=== PATIENT | female | born 1970 | race Caucasian/White ===

== ENCOUNTER → 2023-05-16 | Day surgery (SDC) | payer MEDICARE ==
[~2023-05-16] MED LIST: ACETAMINOPHEN 1000 MG/100 ML 100 ML IV ONE; ATIVAN1 MG PO; CLONIDINE HCL0.3 MG PO; DEXAMETHASONE SOD PHOS INJ 4 MG/ML SDV ONE; DICYCLOMINE HCL10 MG PO; DULCOLAX10 MG PR; FENTANYL CITRATE/PF 100MCG/2 ML INJ ONE; IOPAMIDOL 610MG/1ML 300 MG/ML VIAL IV ONE; LIDOCAINE HCL 2% LOCAL INJ 5 ML SDV VIAL INJ ONE; MIDAZOLAM HCL 2 MG/2 ML VIAL ONE; NEURONTIN300 MG PO; ONDANSETRON HCL INJ 2MG/ML 2ML 2 MG/ML VIAL ONE; ONDANSETRON ODT8 MG PO; PHENTERMINE H37.5 MG PO; PROPOFOL IV EMULSION 10 MG/ML 20 ML VIAL ONE; SENOKOT-S TABL1 EACH PO; SEVOFLURANE INHAL SOLN 250 ML PEN BTL ONE
[2023-05-16 06:21] LABS: BASOPHILS # (AUTO) 0.1 (0.0-0.1); BASOPHILS % 0.7 % (0.0-1.0); EOSINOPHILS # (AUTO) 0.3 (0.0-0.4); HEMATOCRIT 36.1 % (34.2-44.1); HEMOGLOBIN 10.9 g/dL (12.0-16.0); LYMPHOCYTES # (AUTO) 2.5 (1.0-3.2); LYMPHOCYTES % 28.8 % (18.0-39.1); MEAN CORPUSCULAR HEMOGLOBIN 24.7 pg (28-32); MEAN CORPUSCULAR HGB CONC 30.2 g/dL (31-35); MEAN CORPUSCULAR VOLUME 81.9 fL (81-99); MONOCYTES # (AUTO) 0.5 (0.2-0.8); MONOCYTES % 5.7 % (4.4-11.3); NEUTROPHILS # (AUTO) 5.3 (2.1-6.9); NEUTROPHILS % 61.3 % (38.7-80.0); PLATELET COUNT 271 x10e3/uL (140-360); RED BLOOD COUNT 4.41 x10e6/uL (3.6-5.1); RED CELL DISTRIBUTION WIDTH 15.5 % (11.7-14.4); WHITE BLOOD COUNT 8.62 x10e3/uL (4.8-10.8)
[2023-05-16] MEDS: CEFTRIAXONE 1 GM VIAL ONE (06:36)
[2023-05-16] MEDS: LACTATED RINGER'S 1,000 ML ONE (06:36)
[2023-05-16 06:51] LABS: ANION GAP 13.5 mmol/L (8-16); CALCIUM 9.8 mg/dL (8.4-10.2); CREATININE, SERUM 0.88 mg/dL (0.57-1.11); POTASSIUM 3.5 mmol/L (3.5-5.1)
[2023-05-16] MEDS: ONDANSETRON HCL INJ 2MG/ML 2ML 2 MG/ML VIAL ONE (08:30)
[2023-05-16] MEDS: FENTANYL CITRATE/PF 100MCG/2 ML INJ ONE (08:30)
[2023-05-16] MEDS: ACETAMINOPHEN/CODEINE 300MG - 30MG TAB ONE (08:35)
[2023-05-16 09:05] VITALS: BP 130/90; PULSE 82; RESP 16; O2SAT 97
== END | disposition home or self-care (01) ==
LOC: OR 05:33
PROVIDERS: ATTEND Urology
DX: N20.0 Calculus of kidney (principal); Z46.6 Encounter for fitting and adjustment of urinary device; N81.10 Cystocele, unspecified; N81.6 Rectocele; N95.2 Postmenopausal atrophic vaginitis; N28.89 Other specified disorders of kidney and ureter; F41.9 Anxiety disorder, unspecified; F32.A Depression, unspecified; Z79.899 Other long term (current) drug therapy
CPT/HCPCS: 36415; 52352; 74018; 74420; 80048; 85025; 87086; C1769; J0131; J0696; J1100; J2001; J2250; J2405; J2704; J3010; J7121; Q9967

== ENCOUNTER → 2024-08-15 | Outpatient (REF) | payer MEDICARE ==
[~2024-08-15] MED LIST changes: -ACETAMINOPHEN 1000 MG/100 ML 100 ML IV ONE; -DEXAMETHASONE SOD PHOS INJ 4 MG/ML SDV ONE; -FENTANYL CITRATE/PF 100MCG/2 ML INJ ONE; +IOPAMIDOL 370 MG/ML 100 ML INFUS..BTL INJ ONE; -IOPAMIDOL 610MG/1ML 300 MG/ML VIAL IV ONE; -LIDOCAINE HCL 2% LOCAL INJ 5 ML SDV VIAL INJ ONE; -MIDAZOLAM HCL 2 MG/2 ML VIAL ONE; -ONDANSETRON HCL INJ 2MG/ML 2ML 2 MG/ML VIAL ONE; -PROPOFOL IV EMULSION 10 MG/ML 20 ML VIAL ONE; -SEVOFLURANE INHAL SOLN 250 ML PEN BTL ONE
== END ==
LOC: CT 14:11
PROVIDERS: ATTEND Internal Medicine
DX: R19.5 Other fecal abnormalities (principal); R10.815 Periumbilic abdominal tenderness; K59.09 Other constipation
CPT/HCPCS: 74177; Q9967

== ENCOUNTER 2024-09-09 20:20 | Inpatient (IN) | payer MEDICARE ==
[~2024-09-09] VITALS: Ht 160 cm; Wt 59.0 kg
[~2024-09-09 20:20] MED LIST changes: -IOPAMIDOL 370 MG/ML 100 ML INFUS..BTL INJ ONE
[2024-09-09 20:45] VITALS: TEMP 97.9
[2024-09-09 21:17] LABS: BASOPHILS % 0.5 % (0.0-1.0); EOSINOPHILS % 1.9 % (0.0-6.0); LYMPHOCYTES % 21.9 % (18.0-39.1); MONOCYTES % 6.5 % (4.4-11.3); NEUTROPHILS % 68.8 % (38.7-80.0); RED CELL DISTRIBUTION WIDTH 15.4 % (11.7-14.4)
[2024-09-09 21:52] LABS: EST GLOMERULAR FILTRATION RATE 80.0 ML/MIN (>=60)
[2024-09-09] MEDS ORDERED: Morphine 4mg INJECTION 4 MG/ML INJ IV PRN (22:00)
[2024-09-09] MEDS: ONDANSETRON HCL INJ 2MG/ML 2ML 2 MG/ML VIAL IV STA (22:16)
[2024-09-09] MEDS: KETOROLAC TROMETHAMINE 30 MG/ML VIAL IV STA (22:17)
[2024-09-09] MEDS: SODIUM CHLORIDE 0.9% 1000ML 1,000 ML IV STA (22:19)
[2024-09-09 22:21] VITALS: PULSE 88; RESP 17
[2024-09-09 23:30] LABS: LEUKOCYTE ESTERASE ,URINE SMALL (NEGATIVE); PROTEIN,URINE DIPSTICK NEGATIVE (NEGATIVE); URINE UROBILINOGEN 0.2 mg/dL (0.2 - 1)
[2024-09-09 23:31] LABS: EPITHELIAL CELLS,URINE MODERATE /LPF
[2024-09-10] MEDS: HYDROMORPHONE 1MG/1ML INJ IV PRN (00:37)
[2024-09-10 08:21] LABS: BASOPHILS % 0.7 % (0.0-1.0); EOSINOPHILS % 3.3 % (0.0-6.0); LYMPHOCYTES % 32.0 % (18.0-39.1); MONOCYTES % 6.5 % (4.4-11.3); NEUTROPHILS % 57.1 % (38.7-80.0); RED CELL DISTRIBUTION WIDTH 15.5 % (11.7-14.4)
[2024-09-10 08:43] VITALS: BP 128/84; PULSE 66; RESP 19; TEMP 98.1; O2SAT 98
[2024-09-10 09:19] LABS: EST GLOMERULAR FILTRATION RATE 82.0 ML/MIN (>=60)
[2024-09-10 09:30] VITALS: BP 128/84; PULSE 66; RESP 19; TEMP 98.1; O2SAT 98
[2024-09-10 11:38] VITALS: BP 149/86; PULSE 62; RESP 17; TEMP 97.3; O2SAT 95
[2024-09-10] MEDS: ONDANSETRON HCL INJ 2MG/ML 2ML 2 MG/ML VIAL IV PRN (11:50)
[2024-09-10] MEDS ORDERED: PROPOFOL IV EMULSION 10 MG/ML 20 ML VIAL ONE (12:59)
[2024-09-10] MEDS ORDERED: LIDOCAINE HCL 2% LOCAL INJ 5 ML SDV VIAL INJ ONE (12:59)
[2024-09-10] MEDS ORDERED: MIDAZOLAM HCL 2 MG/2 ML VIAL ONE (12:59)
[2024-09-10] MEDS ORDERED: FENTANYL CITRATE/PF 100MCG/2 ML INJ ONE (12:59)
[2024-09-10] MEDS ORDERED: FAMOTIDINE 20 MG/2 ML VIAL IV ONE (14:05)
[2024-09-10] MEDS ORDERED: ONDANSETRON HCL INJ 2MG/ML 2ML 2 MG/ML VIAL ONE (14:05)
[2024-09-10] MEDS ORDERED: GLYCOPYRROLATE INJ 0.2 MG/ML VIAL ONE (14:05)
[2024-09-10] MEDS ORDERED: DEXAMETHASONE SOD PHOS INJ 4 MG/ML SDV ONE (14:05)
[2024-09-10] MEDS ORDERED: KETOROLAC TROMETHAMINE 30 MG/ML VIAL ONE (14:22)
[2024-09-10] MEDS ORDERED: ACETAMINOPHEN/CODEINE 300MG - 30MG TAB PO PRN (14:30)
[2024-09-10] MEDS: ONDANSETRON HCL INJ 2MG/ML 2ML 2 MG/ML VIAL ONE (15:02)
[2024-09-10] MEDS: PROMETHAZINE HCL (IM) 25 MG/ML VIAL IM ONE (15:24)
[2024-09-10 16:00] VITALS: BP 156/98; PULSE 90; RESP 18; TEMP 97.6; O2SAT 97
[2024-09-10] MEDS: PHENAZOPYRIDINE HCL 100 MG TAB PO PRN (16:02)
[2024-09-10] MEDS: SOLIFENACIN SUCCINATE 5 MG TAB PO SCH (17:42)
[2024-09-10 20:00] VITALS: BP 148/97; PULSE 73; RESP 20; TEMP 98.3; O2SAT 95
[2024-09-11] VITALS (7 sets, daily range): BP systolic 133–163; BP diastolic 84–101; PULSE 69–102; RESP 17–20; TEMP 98.3–99; O2SAT 94–100
[2024-09-11] MEDS ORDERED: PHENTERMINE H37.5 MG (01:28)
[2024-09-11] MEDS ORDERED: FLUCONAZOLE100 MG PO (01:28)
[2024-09-11] MEDS ORDERED: DOCUSATE SODIU100 MG PO (01:28)
[2024-09-11] MEDS ORDERED: HYDROXYZINE HCL10 MG PO (01:28)
[2024-09-11] MEDS ORDERED: TRAZODONE HCL100 MG PO (01:28)
[2024-09-11 05:44] LABS: BASOPHILS % 0.1 % (0.0-1.0); EOSINOPHILS % 0.0 % (0.0-6.0); LYMPHOCYTES % 8.0 % (18.0-39.1); MONOCYTES % 1.9 % (4.4-11.3); NEUTROPHILS % 89.6 % (38.7-80.0); RED CELL DISTRIBUTION WIDTH 15.6 % (11.7-14.4)
[2024-09-11 06:11] LABS: EST GLOMERULAR FILTRATION RATE 55.0 ML/MIN (>=60)
[2024-09-11] MEDS: SODIUM CHLORIDE 0.9% 1000ML 1,000 ML IV SCH (08:47)
[2024-09-11] MEDS ORDERED: SOLIFENACIN SUCCINATE 5 MG TAB PO SCH (15:00)
[2024-09-11] MEDS: HYDROMORPHONE 1MG/1ML INJ IV PRN (16:10)
[2024-09-11] MEDS: GABAPENTIN 300 MG CAP PO SCH (21:05)
[2024-09-11] MEDS: CLONIDINE HCL 0.3 MG TAB PO SCH (21:05)
[2024-09-11] MEDS: ONDANSETRON HCL INJ 2MG/ML 2ML 2 MG/ML VIAL IV PRN (21:05)
[2024-09-11] MEDS: LORAZEPAM 1 MG TAB PO PRN (21:06)
[2024-09-11] MEDS: TRAZODONE HCL 50 MG TAB PO SCH (23:27)
[2024-09-12] VITALS: BP 76/54; PULSE 68; RESP 17; TEMP 97.7; O2SAT 98
[2024-09-12 04:00] VITALS: BP 119/85; PULSE 50; RESP 16; TEMP 98.6; O2SAT 97
[2024-09-12 06:12] LABS: EOSINOPHILS % 0.4 % (0.0-6.0); LYMPHOCYTES % 25.1 % (18.0-39.1); MONOCYTES % 6.7 % (4.4-11.3); NEUTROPHILS % 67.1 % (38.7-80.0); RED CELL DISTRIBUTION WIDTH 16.2 % (11.7-14.4)
[2024-09-12 06:13] LABS: BASOPHILS % 0.5 % (0.0-1.0)
[2024-09-12 06:23] LABS: EST GLOMERULAR FILTRATION RATE 63.0 ML/MIN (>=60)
[2024-09-12 07:45] VITALS: BP 144/88; PULSE 79; RESP 17; TEMP 97.9; O2SAT 99
[2024-09-12] MEDS: SENNA-S TABLET PO SCH (09:00)
[2024-09-12 09:26] VITALS: BP 119/85; PULSE 50; RESP 16; TEMP 98.6; O2SAT 97
[2024-09-12 12:43] VITALS: BP 134/84; PULSE 67; RESP 16; TEMP 97.9; O2SAT 98
[2024-09-12] MEDS ORDERED: LEVOFLOXACIN250 MG PO (12:48)
[2024-09-12] MEDS ORDERED: VESICARE5 MG PO (12:49)
[2024-09-12] MEDS ORDERED: TYLENOL 3 PO (12:50)
== END 2024-09-12 14:10 | disposition home or self-care (01) | DRG 661 ==
LOC: ER 20:25 → ERHOLD 21:53 → MED/SURG 23:57
PROVIDERS: ADMIT Internal Medicine; ATTEND Internal Medicine
PROC: 0TC78ZZ Extirpation of Matter from Left Ureter, Via Natural or Artificial Opening Endoscopic (ICD-10-PCS; 2024-09-10)
PROC: 0T9B80Z Drainage of Bladder with Drainage Device, Via Natural or Artificial Opening Endoscopic (ICD-10-PCS; 2024-09-10)
PROC: BT141ZZ Fluoroscopy of Kidneys, Ureters and Bladder using Low Osmolar Contrast (ICD-10-PCS; 2024-09-10)
PROC: 0T778DZ Dilation of Left Ureter with Intraluminal Device, Via Natural or Artificial Opening Endoscopic (ICD-10-PCS; principal; 2024-09-10 13:43)
DX: N13.6 Pyonephrosis (principal); D64.9 Anemia, unspecified; N17.9 Acute kidney failure, unspecified; F32.9 Major depressive disorder, single episode, unspecified; F41.9 Anxiety disorder, unspecified; F43.10 Post-traumatic stress disorder, unspecified; G47.00 Insomnia, unspecified; I10 Essential (primary) hypertension; N81.10 Cystocele, unspecified; N81.6 Rectocele; N32.89 Other specified disorders of bladder; N95.2 Postmenopausal atrophic vaginitis; N36.2 Urethral caruncle; B95.8 Unspecified staphylococcus as the cause of diseases classified elsewhere; N36.8 Other specified disorders of urethra; Z87.442 Personal history of urinary calculi; Z98.84 Bariatric surgery status; Z87.440 Personal history of urinary (tract) infections
CPT/HCPCS: 36415; 74176; 74420; 80048; 80053; 81001; 83690; 83970; 84550; 85025; 87086; 87186; 88300; 99284; C1758; C1769; J1100; J1171; J1308; J1885; J2003; J2250; J2405; J2543; J2550; J7030

== ENCOUNTER 2024-10-03 19:26 | Inpatient (IN) | payer MEDICARE ==
[~2024-10-03] VITALS: Ht 160 cm; Wt 59.0 kg
[~2024-10-03 19:26] MED LIST changes: +DOCUSATE SODIU100 MG PO; +DULCOLAX10 MG PO; -DULCOLAX10 MG PR; +FLUCONAZOLE100 MG PO; +HYDROXYZINE HCL10 MG PO; +LEVOFLOXACIN250 MG PO; +PHENTERMINE H37.5 MG; +TRAZODONE HCL100 MG PO; +TYLENOL 3 PO; +VESICARE5 MG PO
[2024-10-03 20:57] LABS: BASOPHILS % 0.3 % (0.0-1.0); EOSINOPHILS % 0.6 % (0.0-6.0); LYMPHOCYTES % 14.8 % (18.0-39.1); MONOCYTES % 4.4 % (4.4-11.3); NEUTROPHILS % 79.7 % (38.7-80.0); RED CELL DISTRIBUTION WIDTH 14.6 % (11.7-14.4)
[2024-10-03] MEDS: KETOROLAC TROMETHAMINE 30 MG/ML VIAL IV STA (21:00)
[2024-10-03] MEDS: ONDANSETRON HCL INJ 2MG/ML 2ML 2 MG/ML VIAL IV STA (21:01)
[2024-10-03] MEDS: FENTANYL CITRATE/PF 100MCG/2 ML INJ IV ONE (21:01)
[2024-10-03 21:20] LABS: EST GLOMERULAR FILTRATION RATE 70.0 ML/MIN (>=60)
[2024-10-03] MEDS ORDERED: SODIUM CHLORIDE 0.9% 1000ML 1,000 ML IV SCH (22:30)
[2024-10-03 23:16] LABS: LEUKOCYTE ESTERASE ,URINE SMALL (NEGATIVE); PROTEIN,URINE DIPSTICK 2+ (NEGATIVE); URINE UROBILINOGEN 1 mg/dL (0.2 - 1)
[2024-10-03 23:47] LABS: WBC,URINE (MAN) >50 /HPF (0-5)
[2024-10-03 23:48] LABS: CALCIUM OXALATE CRYSTALS,UR FEW (FEW); EPITHELIAL CELLS,URINE FEW /LPF
[2024-10-04] VITALS (13 sets, daily range): BP systolic 87–120; BP diastolic 57–77; PULSE 65–101; RESP 15–20; TEMP 97.5–98.4; O2SAT 96–100
[2024-10-04] MEDS: ONDANSETRON HCL INJ 2MG/ML 2ML 2 MG/ML VIAL IV PRN (00:50)
[2024-10-04] MEDS: Morphine 4mg INJECTION 4 MG/ML INJ IV PRN (00:50)
[2024-10-04 07:28] LABS: BASOPHILS % 0.6 % (0.0-1.0); EOSINOPHILS % 3.8 % (0.0-6.0); LYMPHOCYTES % 37.1 % (18.0-39.1); MONOCYTES % 7.1 % (4.4-11.3); NEUTROPHILS % 51.1 % (38.7-80.0); RED CELL DISTRIBUTION WIDTH 14.6 % (11.7-14.4)
[2024-10-04 08:01] LABS: EST GLOMERULAR FILTRATION RATE 85.0 ML/MIN (>=60)
[2024-10-04] MEDS: SODIUM CHLORIDE 0.9% 1000ML 1,000 ML IV SCH (12:19)
[2024-10-04] MEDS: HYDROMORPHONE 1MG/1ML INJ IV PRN (12:20)
[2024-10-04] MEDS: PHENAZOPYRIDINE HCL 100 MG TAB PO PRN (16:24)
[2024-10-04] MEDS ORDERED: BISACODYL5 MG PO (22:21)
[2024-10-04] MEDS: DOCUSATE SODIUM 100 MG CAP PO SCH (22:46)
[2024-10-04] MEDS: SENNA-S TABLET PO SCH (22:46)
[2024-10-04] MEDS: LORAZEPAM 1 MG TAB PO SCH (22:46)
[2024-10-04] MEDS: BISACODYL 5 MG TAB EC PO SCH (22:46)
[2024-10-04] MEDS: TRAZODONE HCL 50 MG TAB PO SCH (22:46)
[2024-10-05] VITALS: BP 122/70; PULSE 76; RESP 18; TEMP 98.1; O2SAT 98
[2024-10-05 04:00] VITALS: BP 129/80; PULSE 78; RESP 18; TEMP 97.9; O2SAT 100
[2024-10-05 05:14] LABS: BASOPHILS % 0.4 % (0.0-1.0); EOSINOPHILS % 5.0 % (0.0-6.0); LYMPHOCYTES % 36.2 % (18.0-39.1); MONOCYTES % 6.2 % (4.4-11.3); NEUTROPHILS % 52.1 % (38.7-80.0); RED CELL DISTRIBUTION WIDTH 14.8 % (11.7-14.4)
[2024-10-05 05:46] LABS: EST GLOMERULAR FILTRATION RATE 88.0 ML/MIN (>=60)
[2024-10-05 09:00] VITALS: BP 135/84; PULSE 80; RESP 18; TEMP 98.1; O2SAT 98
[2024-10-05] MEDS: SOLIFENACIN SUCCINATE 5 MG TAB PO SCH (09:09)
[2024-10-05 13:28] VITALS: BP 124/100; PULSE 89; RESP 18; TEMP 98.5; O2SAT 100
[2024-10-05] MEDS: ONDANSETRON HCL 4 MG ORAL DISINTEGRATING TAB PO PRN (15:18)
[2024-10-05 16:11] VITALS: BP 132/92; PULSE 86; RESP 18; TEMP 98.5; O2SAT 100
[2024-10-05] MEDS: PROMETHAZINE 12.5MG/ NACL 0.9% 12.5 MG/50 ML BAG IV PRN (17:56)
[2024-10-05 20:00] VITALS: BP 134/86; PULSE 89; RESP 18; TEMP 98.1; O2SAT 100
[2024-10-05] MEDS ORDERED: TRAZODONE HCL 50 MG TAB PO SCH (21:00)
[2024-10-05] MEDS: GABAPENTIN 300 MG CAP PO SCH (21:00)
[2024-10-05] MEDS: CLONIDINE HCL 0.3 MG TAB PO SCH (21:36)
[2024-10-05] MEDS ORDERED: ACETAMINOPHEN 325 MG TAB PO PRN (22:30)
[2024-10-05] MEDS: LORAZEPAM 1 MG TAB PO ONE (23:19)
[2024-10-05] MEDS: KETOROLAC TROMETHAMINE 30 MG/ML VIAL IV PRN (23:20)
[2024-10-06] VITALS (7 sets, daily range): BP systolic 88–134; BP diastolic 54–83; PULSE 52–64; RESP 16–20; TEMP 97.2–98.2; O2SAT 98–100
[2024-10-06 05:36] LABS: BASOPHILS % 0.3 % (0.0-1.0); EOSINOPHILS % 4.4 % (0.0-6.0); LYMPHOCYTES % 35.7 % (18.0-39.1); MONOCYTES % 4.9 % (4.4-11.3); NEUTROPHILS % 54.5 % (38.7-80.0); RED CELL DISTRIBUTION WIDTH 14.6 % (11.7-14.4)
[2024-10-06 07:41] LABS: EST GLOMERULAR FILTRATION RATE 98.0 ML/MIN (>=60)
[2024-10-06] MEDS: SODIUM CHLORIDE 0.9% 250ML 250 ML IV ONE (08:30)
[2024-10-06] MEDS ORDERED: MIDAZOLAM HCL 2 MG/2 ML VIAL ONE (15:10)
[2024-10-06] MEDS ORDERED: FENTANYL CITRATE/PF 100MCG/2 ML INJ ONE (15:11)
[2024-10-06] MEDS ORDERED: PROPOFOL IV EMULSION 10 MG/ML 20 ML VIAL ONE (15:12)
[2024-10-06] MEDS ORDERED: DEXAMETHASONE SOD PHOS INJ 4 MG/ML SDV ONE (15:48)
[2024-10-06] MEDS ORDERED: LIDOCAINE HCL 2% LOCAL INJ 5 ML SDV VIAL INJ ONE (15:48)
[2024-10-06] MEDS ORDERED: ONDANSETRON HCL INJ 2MG/ML 2ML 2 MG/ML VIAL ONE (15:48)
[2024-10-06] MEDS: FENTANYL CITRATE/PF 100MCG/2 ML INJ ONE (16:11)
[2024-10-06] MEDS ORDERED: ACETAMINOPHEN 1000 MG/100 ML IV PRN (16:15)
[2024-10-06] MEDS ORDERED: PHENAZOPYRIDINE HCL 100 MG TAB PO PRN (16:15)
[2024-10-06] MEDS: LORAZEPAM 1 MG TAB PO SCH (20:26)
[2024-10-07] VITALS: BP 104/70; PULSE 92; RESP 18; TEMP 98.9; O2SAT 98
[2024-10-07 05:40] LABS: BASOPHILS % 0.2 % (0.0-1.0); EOSINOPHILS % 0.0 % (0.0-6.0); LYMPHOCYTES % 16.1 % (18.0-39.1); MONOCYTES % 4.2 % (4.4-11.3); NEUTROPHILS % 79.3 % (38.7-80.0); RED CELL DISTRIBUTION WIDTH 14.3 % (11.7-14.4)
[2024-10-07 06:41] LABS: EST GLOMERULAR FILTRATION RATE 87.0 ML/MIN (>=60)
[2024-10-07 07:45] VITALS: BP 104/70; PULSE 92; RESP 18; TEMP 98.9; O2SAT 98
[2024-10-07 08:00] VITALS: BP 107/76; PULSE 99; RESP 18; TEMP 98.5; O2SAT 100
[2024-10-07] MEDS: LINEZOLID 600 MG/D5W 300ML 300 ML IV SCH (09:54)
[2024-10-07 12:00] VITALS: BP 110/69; PULSE 87; RESP 18; TEMP 97.8; O2SAT 100
== END 2024-10-07 12:32 | disposition home or self-care (01) | DRG 660 ==
LOC: ER 19:59 → ERHOLD 23:19 → MED/SURG 10-04 00:16
PROVIDERS: ADMIT Internal Medicine; ATTEND Internal Medicine
PROC: 0T7D8ZZ Dilation of Urethra, Via Natural or Artificial Opening Endoscopic (ICD-10-PCS; 2024-10-06)
PROC: 0TC78ZZ Extirpation of Matter from Left Ureter, Via Natural or Artificial Opening Endoscopic (ICD-10-PCS; 2024-10-06)
PROC: 0TC18ZZ Extirpation of Matter from Left Kidney, Via Natural or Artificial Opening Endoscopic (ICD-10-PCS; 2024-10-06)
PROC: BT171ZZ Fluoroscopy of Left Ureter using Low Osmolar Contrast (ICD-10-PCS; 2024-10-06)
PROC: 0T778DZ Dilation of Left Ureter with Intraluminal Device, Via Natural or Artificial Opening Endoscopic (ICD-10-PCS; principal; 2024-10-06 15:08)
PROC: 0TP98DZ Removal of Intraluminal Device from Ureter, Via Natural or Artificial Opening Endoscopic (ICD-10-PCS; 2024-10-06 15:08)
DX: T83.123A Displacement of other urinary stents, initial encounter (principal); N13.6 Pyonephrosis; B95.2 Enterococcus as the cause of diseases classified elsewhere; N23 Unspecified renal colic; N13.9 Obstructive and reflux uropathy, unspecified; N36.2 Urethral caruncle; K59.09 Other constipation; F32.9 Major depressive disorder, single episode, unspecified; F43.10 Post-traumatic stress disorder, unspecified; F51.04 Psychophysiologic insomnia; F41.9 Anxiety disorder, unspecified; Y83.1 Surgical operation with implant of artificial internal device as the cause of abnormal reaction of the patient, or of later complication, without mention of misadventure at the time of the procedure; Z96.0 Presence of urogenital implants; Z87.440 Personal history of urinary (tract) infections; Z90.710 Acquired absence of both cervix and uterus; Z82.49 Family history of ischemic heart disease and other diseases of the circulatory system
CPT/HCPCS: 36415; 74176; 74420; 80048; 80053; 81001; 85025; 87086; 87186; 88300; 94799; 99284; C1769; C2617; J1100; J1171; J1885; J2003; J2020; J2250; J2270; J2405; J2543; J2550; J7030; Q0162